=== PATIENT | female | born 1970 | race Caucasian/White ===

== ENCOUNTER 2021-11-20 09:46 | Observation (INO) ==
[2021-11-20] MEDS ORDERED: Ondansetron 4 MG/2 ML VIAL IVP PRN (13:03)
[2021-11-20] MEDS ORDERED: Naloxone 0.4 MG/ML INJ IVP PRN (13:03)
[2021-11-20 14:09] LABS: Adenovirus Not Detected (Not Detect); Bordetella Pertussis Not Detected (Not Detect); Chlamydophila pneumoniae Not Detected (Not Detect); Coronavirus 229E Not Detected (Not Detect); Coronavirus HKU1 Not Detected (Not Detect); Coronavirus NL63 Not Detected (Not Detect); Coronavirus OC43 Not Detected (Not Detect); Human Metapneumovirus Not Detected (Not Detect); Human Rhinovirus/Enterovirus Not Detected (Not Detect); Influenza A Subtype 2009 H1 Not Detected (Not Detect); Influenza B Not Detected (Not Detect); Mycoplasma pneumoniae Not Detected (Not Detect); Parainfluenza Virus 1 Not Detected (Not Detect); Parainfluenza Virus 2 Not Detected (Not Detect); Parainfluenza Virus 3 Not Detected (Not Detect); Parainfluenza Virus 4 Not Detected (Not Detect); Respiratory Syncytial Virus Not Detected (Not Detect); SARS-CoV-2 Not Detected (Not Detect)
[2021-11-20] MEDS ORDERED: 0.9 % Sodium Chloride 250 ML IVC PRN (14:24)
[2021-11-20] MEDS ORDERED: 0.9 % Sodium Chloride 1,000 ML PRIME SCH (14:30)
[2021-11-20 15:23] LABS: Hepatitis B Surface Antibody < 3.10 mIU/mL
[2021-11-20 15:35] LABS: Hepatitis B Surface Antigen Nonreactive (Nonreactive)
[2021-11-20] MEDS ORDERED: Ipratropium/Albuterol Neb 3 ML IH PRN (17:39)
[2021-11-20] MEDS: clonazePAM 1 MG TABLET PO SCH ×2 (18:19→20:55)
[2021-11-20 18:35] LABS: Calcium 8.9 mg/dL (8.6-10.3); Potassium 4.5 mEq/L (3.5-5.1)
[2021-11-20] MEDS: Gabapentin 300 MG CAPSULE PO SCH (21:40)
[2021-11-20] MEDS: hydrALAZINE 25 MG TABLET PO SCH (21:40)
[2021-11-20] MEDS: *HR* Heparin 5,000 UNIT/ML VIAL SQ SCH (21:41)
[2021-11-21] MEDS: clonazePAM 0.5 MG TABLET PO PRN (01:30)
[2021-11-21] MEDS ORDERED: Acetaminophen 325 MG TABLET PO ONE (01:30)
[2021-11-21 01:48] LABS: Basophils # 0.1 K/mcL (0.0-0.2); Basophils % 0.4 %; Eosinophils # 0.2 K/mcL (0.0-0.6); Eosinophils % 1.1 %; Hematocrit 30.7 % (35.3-44.9); Hemoglobin 9.6 g/dL (11.5-15.4); Immature Granulocytes % 0.7 % (0-4); Lymphocytes % 12.4 %; Mean Corpuscular HGB Conc 31.3 g/dL (31.6-35.5); Mean Platelet Volume 12.6 fL (9.4-12.4); Monocytes # 1.3 K/mcL (0.0-1.3); Monocytes % 8.3 %; Neutrophils # 12.5 K/mcL (1.6-8.9); Nucleated Red Blood Cells 0.5 /100 WBC (0); Platelet Count 170 K/mcL (140-400); Red Cell Distribution Width 17.2 % (11.5-14.5); Segmented Neutrophils % 77.1 %; White Blood Count 16.2 K/mcL (4.3-11.1)
[2021-11-21 02:10] LABS: Calcium 9.3 mg/dL (8.6-10.3); Potassium 4.5 mEq/L (3.5-5.1)
[2021-11-21] MEDS: *HR* Heparin 5,000 UNIT/ML VIAL SQ SCH ×3 (05:40→20:12)
[2021-11-21] MEDS ORDERED: Dextrose Gel 15 GM/37.5 ML TUBE PO PRN ×2 (07:33)
[2021-11-21] MEDS ORDERED: *HR* Dextrose 50 % in Water (Syg) 50 ML SYRINGE IVP PRN (07:33)
[2021-11-21] MEDS ORDERED: D5% in Water 1,000 ML IVC PRN (07:33)
[2021-11-21] MEDS: Aspirin Enteric Coated 81 MG Tablet PO SCH (09:17)
[2021-11-21] MEDS: amLODIPine 5 MG TABLET PO SCH (09:17)
[2021-11-21] MEDS: clonazePAM 1 MG TABLET PO SCH ×2 (09:17→20:12)
[2021-11-21] MEDS: Azithromycin 250 MG TABLET PO SCH (09:17)
[2021-11-21] MEDS: lisinopriL 20 MG TABLET PO SCH (09:17)
[2021-11-21] MEDS: Anastrozole 1 MG TABLET PO SCH (09:17)
[2021-11-21] MEDS: cefTRIAXone 1,000 MG in 0.9 % Sodium Chloride Mini Bag 100 ML IVPB SCH (09:17)
[2021-11-21] MEDS: Furosemide 20 MG TABLET PO SCH (09:17)
[2021-11-21] MEDS: hydrALAZINE 25 MG TABLET PO SCH ×2 (09:17→20:12)
[2021-11-21] MEDS: Ipratropium/Albuterol Neb 3 ML IH SCH ×3 (11:10→20:51)
[2021-11-21] MEDS: Insulin LISPRO 300 UNITS/3 ML VIAL SUBQ SCH ×2 (12:16→16:49)
[2021-11-21] MEDS: Gabapentin 300 MG CAPSULE PO SCH (20:12)
[2021-11-21] MEDS ORDERED: Insulin LISPRO 300 UNITS/3 ML VIAL SUBQ SCH (21:00)
[2021-11-22] MEDS: clonazePAM 0.5 MG TABLET PO PRN (00:25)
[2021-11-22] MEDS: Ipratropium/Albuterol Neb 3 ML IH SCH ×2 (04:03→11:42)
[2021-11-22 05:37] LABS: Basophils # 0.1 K/mcL (0.0-0.2); Basophils % 0.6 %; Eosinophils # 0.2 K/mcL (0.0-0.6); Eosinophils % 1.5 %; Hematocrit 29.3 % (35.3-44.9); Hemoglobin 9.1 g/dL (11.5-15.4); Lymphocytes # 1.6 K/mcL (0.6-4.6); Lymphocytes % 11.2 %; Mean Corpuscular HGB Conc 31.1 g/dL (31.6-35.5); Mean Corpuscular Hemoglobin 31.1 pg (28.0-33.3); Mean Platelet Volume 12.7 fL (9.4-12.4); Monocytes # 1.1 K/mcL (0.0-1.3); Nucleated Red Blood Cells 0.2 /100 WBC (0); Platelet Count 171 K/mcL (140-400); Red Blood Count 2.93 M/mcL (3.82-4.97); Red Cell Distribution Width 17.2 % (11.5-14.5); Segmented Neutrophils % 77.7 %; White Blood Count 14.2 K/mcL (4.3-11.1)
[2021-11-22 05:50] LABS: Calcium 8.9 mg/dL (8.6-10.3); Phosphorous 5.1 mg/dL (2.7-4.5); Potassium 5.4 mEq/L (3.5-5.1)
[2021-11-22] MEDS: *HR* Heparin 5,000 UNIT/ML VIAL SQ SCH ×2 (06:11→13:20)
[2021-11-22] MEDS: Azithromycin 250 MG TABLET PO SCH (08:37)
[2021-11-22] MEDS: Aspirin Enteric Coated 81 MG Tablet PO SCH (08:37)
[2021-11-22] MEDS: Furosemide 20 MG TABLET PO SCH (08:37)
[2021-11-22] MEDS: clonazePAM 1 MG TABLET PO SCH (08:37)
[2021-11-22] MEDS: hydrALAZINE 25 MG TABLET PO SCH (08:37)
[2021-11-22] MEDS: Insulin LISPRO 300 UNITS/3 ML VIAL SUBQ SCH ×3 (08:38→17:02)
[2021-11-22] MEDS: lisinopriL 20 MG TABLET PO SCH (08:38)
[2021-11-22] MEDS: amLODIPine 5 MG TABLET PO SCH (08:38)
[2021-11-22] MEDS: Anastrozole 1 MG TABLET PO SCH (08:38)
[2021-11-22] MEDS: cefTRIAXone 1,000 MG in 0.9 % Sodium Chloride Mini Bag 100 ML IVPB SCH (08:38)
[2021-11-22] MEDS ORDERED: 0.9 % Sodium Chloride 250 ML IVC PRN (09:33)
[2021-11-22] MEDS ORDERED: *HR* Heparin 10,000 UNIT/10 ML VIAL IV PRN (09:33)
[2021-11-22 11:08] VITALS: O2SAT 92
[2021-11-22] MEDS ORDERED: Ipratropium/Albuterol Neb 3 ML IH PRN (14:08)
[2021-11-22 16:21] VITALS: PULSE 81
[2021-11-22 21:11] VITALS: BP 167/90; TEMP 98.1
== END 2021-11-22 20:45 | disposition home or self-care (01) ==
LOC: 2ANU → SUATTDRO 12:36
PROVIDERS: ADMIT Internal Medicine; ATTEND Family Medicine

== ENCOUNTER 2022-07-30 01:35 | Inpatient (IN) ==
[2022-07-30] MEDS ORDERED: Naloxone 0.4 MG/ML INJ IVP PRN (04:41)
[2022-07-30] MEDS ORDERED: *HR* Dextrose 50 % in Water (Syg) 50 ML SYRINGE IVP PRN (04:48)
[2022-07-30] MEDS ORDERED: D5% in Water 1,000 ML IVC PRN (04:48)
[2022-07-30] MEDS ORDERED: Dextrose Gel 15 GM/37.5 ML TUBE PO PRN ×2 (04:48)
[2022-07-30] MEDS ORDERED: Morphine Sulfate 2 MG/ML SYRINGE IVP ONE (04:54)
[2022-07-30] MEDS: Insulin LISPRO 300 UNITS/3 ML VIAL SUBQ SCH ×3 (05:14→18:11)
[2022-07-30] MEDS ORDERED: clonazePAM 0.5 MG TABLET PO PRN (05:40)
[2022-07-30 06:42] LABS: Basophils # 0.1 K/mcL (0.0-0.2); Basophils % 0.5 %; Eosinophils % 0.2 %; Hematocrit 31.8 % (35.3-44.9); Hemoglobin 9.7 g/dL (11.5-15.4); Immature Granulocytes % 0.7 % (0-4); Lymphocytes # 1.1 K/mcL (0.6-4.6); Lymphocytes % 6.1 %; Mean Corpuscular HGB Conc 30.5 g/dL (31.6-35.5); Mean Corpuscular Hemoglobin 31.7 pg (28.0-33.3); Mean Corpuscular Volume 103.9 fL (83.0-100.0); Mean Platelet Volume 12.4 fL (9.4-12.4); Monocytes # 1.3 K/mcL (0.0-1.3); Monocytes % 7.1 %; Neutrophils # 15.5 K/mcL (1.6-8.9); Nucleated Red Blood Cells 0.6 /100 WBC (0); Platelet Count 185 K/mcL (140-400); Red Blood Count 3.06 M/mcL (3.82-4.97); Red Cell Distribution Width 19.1 % (11.5-14.5); Segmented Neutrophils % 85.4 %; White Blood Count 18.2 K/mcL (4.3-11.1)
[2022-07-30 06:49] LABS: INR 1.3; Prothrombin Time 14.8 Seconds (9.4-12.1)
[2022-07-30 06:52] LABS: Activated Partial Thrombo Time 33.3 Seconds (26.0-36.0)
[2022-07-30 07:13] LABS: Alanine Aminotransferase 9 Units/L (7-52); Albumin 4.2 g/dL (3.5-5.7); Albumin/Globulin Ratio 1.3 (1.1-2.2); Alkaline Phosphatase 69 Units/L (34-104); Aspartate Amino Transferase 14 Units/L (13-39); BUN/Creatinine Ratio 6 (6-26); Bilirubin,Total 0.4 mg/dL (0.3-1.0); Blood Urea Nitrogen 54 mg/dL (6-20); Calcium 10.2 mg/dL (8.6-10.3); Carbon Dioxide 25 mEq/L (23-29); Chloride 100 mEq/L (98-107); Globulin 3.2 g/dL (2.4-3.5); Glucose 124 mg/dL (70-105); Magnesium 2.2 mg/dL (1.6-2.6); Osmolality,Calculated 304 (280-300); Phosphorous 3.9 mg/dL (2.7-4.5); Potassium 4.6 mEq/L (3.5-5.1); Sodium 139 mEq/L (136-145); Total Protein 7.4 g/dL (6.4-8.9); Troponin I 0.15 ng/mL (< 0.04)
[2022-07-30 07:53] LABS: Adenovirus Not Detected (Not Detect); Bordetella Pertussis Not Detected (Not Detect); Chlamydophila pneumoniae Not Detected (Not Detect); Coronavirus 229E Not Detected (Not Detect); Coronavirus HKU1 Not Detected (Not Detect); Coronavirus NL63 Not Detected (Not Detect); Coronavirus OC43 Not Detected (Not Detect); Human Metapneumovirus Not Detected (Not Detect); Human Rhinovirus/Enterovirus Not Detected (Not Detect); Influenza A Subtype 2009 H1 Not Detected (Not Detect); Influenza B Not Detected (Not Detect); Mycoplasma pneumoniae Not Detected (Not Detect); Parainfluenza Virus 1 Not Detected (Not Detect); Parainfluenza Virus 2 Not Detected (Not Detect); Parainfluenza Virus 3 Not Detected (Not Detect); Parainfluenza Virus 4 Not Detected (Not Detect); Respiratory Syncytial Virus Not Detected (Not Detect); SARS-CoV-2 Not Detected (Not Detect)
[2022-07-30] MEDS ORDERED: 0.9 % Sodium Chloride 250 ML IVC PRN (08:18)
[2022-07-30] MEDS ORDERED: Ethyl Chloride Spray Bottle (104 SPRAY/BOTTLE) TP PRN (08:18)
[2022-07-30] MEDS ORDERED: 0.9 % Sodium Chloride 2,000 ML PRIME SCH (08:30)
[2022-07-30] MEDS: Aspirin Enteric Coated 81 MG Tablet PO SCH (08:41)
[2022-07-30] MEDS: hydrALAZINE 25 MG TABLET PO SCH ×2 (08:41→20:21)
[2022-07-30] MEDS: Furosemide 20 MG TABLET PO SCH (08:42)
[2022-07-30] MEDS: amLODIPine 5 MG TABLET PO SCH (08:42)
[2022-07-30 08:45] LABS: Hepatitis B Surface Antibody < 3.10 mIU/mL
[2022-07-30 08:57] LABS: Hepatitis B Surface Antigen Nonreactive (Nonreactive)
[2022-07-30] MEDS: Acetaminophen 325 MG TABLET PO PRN ×2 (09:00→17:09)
[2022-07-30 09:19] LABS: % Iron Saturation 6 % (15-50); Iron 19 mcg/dL (50-170); Transferrin 241 mg/dL (203-362)
[2022-07-30] MEDS ORDERED: Doxycycline 100 MG in 0.9 % Sodium Chloride Mini Bag 100 ML IVPB SCH ×2 (10:26→14:00)
[2022-07-30] MEDS: Ondansetron 4 MG/2 ML VIAL IVP PRN (10:30)
[2022-07-30] MEDS ORDERED: Piperacillin/Tazobactam 3.375 GM in 0.9 % Sodium Chloride Mini Bag 100 ML IVPB SCH (12:00)
[2022-07-30 13:08] LABS: Ferritin > 1500 ng/mL (10-120)
[2022-07-30] MEDS: Piperacillin/Tazobactam 3.375 GM in 0.9 % Sodium Chloride Mini Bag 100 ML IVPB SCH (16:15)
[2022-07-30] MEDS: Doxycycline 100 MG in 0.9 % Sodium Chloride Mini Bag 100 ML IVPB SCH (16:16)
[2022-07-30] MEDS: *HR* Heparin 5,000 UNIT/ML VIAL SQ SCH (17:09)
[2022-07-30] MEDS: Gabapentin 300 MG CAPSULE PO SCH (20:20)
[2022-07-30] MEDS: clonazePAM 1 MG TABLET PO SCH (20:21)
[2022-07-31] MEDS: Insulin LISPRO 300 UNITS/3 ML VIAL SUBQ SCH ×4 (00:08→18:48)
[2022-07-31] MEDS: Doxycycline 100 MG in 0.9 % Sodium Chloride Mini Bag 100 ML IVPB SCH ×2 (03:27→18:40)
[2022-07-31 03:54] LABS: Basophils # 0.1 K/mcL (0.0-0.2); Basophils % 0.6 %; Eosinophils # 0.3 K/mcL (0.0-0.6); Eosinophils % 2.5 %; Hematocrit 26.7 % (35.3-44.9); Hemoglobin 8.3 g/dL (11.5-15.4); Immature Granulocytes % 0.5 % (0-4); Lymphocytes # 1.8 K/mcL (0.6-4.6); Lymphocytes % 16.2 %; Mean Corpuscular HGB Conc 31.1 g/dL (31.6-35.5); Mean Corpuscular Hemoglobin 31.9 pg (28.0-33.3); Mean Corpuscular Volume 102.7 fL (83.0-100.0); Mean Platelet Volume 11.3 fL (9.4-12.4); Monocytes % 8.9 %; Neutrophils # 7.9 K/mcL (1.6-8.9); Nucleated Red Blood Cells 0.4 /100 WBC (0); Platelet Count 156 K/mcL (140-400); Red Cell Distribution Width 19.2 % (11.5-14.5); Segmented Neutrophils % 71.3 %
[2022-07-31 04:18] LABS: Calcium 9.4 mg/dL (8.6-10.3); Phosphorous 3.9 mg/dL (2.7-4.5); Potassium 4.2 mEq/L (3.5-5.1)
[2022-07-31] MEDS: Piperacillin/Tazobactam 3.375 GM in 0.9 % Sodium Chloride Mini Bag 100 ML IVPB SCH ×3 (04:53→19:48)
[2022-07-31] MEDS: *HR* Heparin 5,000 UNIT/ML VIAL SQ SCH ×2 (05:36→18:40)
[2022-07-31] MEDS: Furosemide 20 MG TABLET PO SCH (07:48)
[2022-07-31] MEDS: hydrALAZINE 25 MG TABLET PO SCH ×2 (07:48→19:46)
[2022-07-31] MEDS: amLODIPine 5 MG TABLET PO SCH (07:48)
[2022-07-31] MEDS: clonazePAM 1 MG TABLET PO SCH ×2 (07:48→19:46)
[2022-07-31] MEDS: Aspirin Enteric Coated 81 MG Tablet PO SCH (07:48)
[2022-07-31 09:52] LABS: Adenovirus Not Detected (Not Detect); Bordetella Pertussis Not Detected (Not Detect); Chlamydophila pneumoniae Not Detected (Not Detect); Coronavirus 229E Not Detected (Not Detect); Coronavirus HKU1 Not Detected (Not Detect); Coronavirus NL63 Not Detected (Not Detect); Coronavirus OC43 Not Detected (Not Detect); Human Metapneumovirus Not Detected (Not Detect); Human Rhinovirus/Enterovirus Not Detected (Not Detect); Influenza A Subtype 2009 H1 Not Detected (Not Detect); Influenza B Not Detected (Not Detect); Mycoplasma pneumoniae Not Detected (Not Detect); Parainfluenza Virus 1 Not Detected (Not Detect); Parainfluenza Virus 2 Not Detected (Not Detect); Parainfluenza Virus 3 Not Detected (Not Detect); Parainfluenza Virus 4 Not Detected (Not Detect); Respiratory Syncytial Virus Not Detected (Not Detect); SARS-CoV-2 Not Detected (Not Detect)
[2022-07-31] MEDS ORDERED: 0.9 % Sodium Chloride 250 ML IVC PRN (12:02)
[2022-07-31] MEDS ORDERED: Iopamidol - 370 500 ML MLS IVP ONE (15:07)
[2022-07-31] MEDS: Gabapentin 300 MG CAPSULE PO SCH (19:46)
[2022-08-01] MEDS: *HR* Heparin 5,000 UNIT/ML VIAL SQ SCH ×2 (05:52→18:04)
[2022-08-01] MEDS: Doxycycline 100 MG in 0.9 % Sodium Chloride Mini Bag 100 ML IVPB SCH ×2 (05:53→18:04)
[2022-08-01] MEDS: Insulin LISPRO 300 UNITS/3 ML VIAL SUBQ SCH ×4 (06:07→18:05)
[2022-08-01 06:34] LABS: Basophils # 0.1 K/mcL (0.0-0.2); Basophils % 0.7 %; Eosinophils # 0.4 K/mcL (0.0-0.6); Eosinophils % 3.3 %; Hematocrit 30.8 % (35.3-44.9); Hemoglobin 9.8 g/dL (11.5-15.4); Immature Granulocytes % 0.6 % (0-4); Lymphocytes # 1.8 K/mcL (0.6-4.6); Lymphocytes % 15.7 %; Mean Corpuscular HGB Conc 31.8 g/dL (31.6-35.5); Mean Corpuscular Hemoglobin 32.3 pg (28.0-33.3); Mean Corpuscular Volume 101.7 fL (83.0-100.0); Mean Platelet Volume 11.8 fL (9.4-12.4); Monocytes # 1.1 K/mcL (0.0-1.3); Monocytes % 9.7 %; Neutrophils # 8.2 K/mcL (1.6-8.9); Nucleated Red Blood Cells 0.5 /100 WBC (0); Platelet Count 187 K/mcL (140-400); Red Blood Count 3.03 M/mcL (3.82-4.97); Red Cell Distribution Width 18.8 % (11.5-14.5); White Blood Count 11.7 K/mcL (4.3-11.1)
[2022-08-01 06:53] LABS: Calcium 9.9 mg/dL (8.6-10.3); Magnesium 2.1 mg/dL (1.6-2.6); Potassium 4.9 mEq/L (3.5-5.1)
[2022-08-01] MEDS ORDERED: 0.9 % Sodium Chloride 250 ML IVC PRN (08:13)
[2022-08-01] MEDS: amLODIPine 5 MG TABLET PO SCH (08:18)
[2022-08-01] MEDS: Furosemide 20 MG TABLET PO SCH (08:18)
[2022-08-01] MEDS: Acetaminophen 325 MG TABLET PO PRN ×2 (08:18→18:03)
[2022-08-01] MEDS: hydrALAZINE 25 MG TABLET PO SCH ×2 (08:19→20:14)
[2022-08-01] MEDS: clonazePAM 1 MG TABLET PO SCH ×2 (08:19→18:05)
[2022-08-01] MEDS: Piperacillin/Tazobactam 3.375 GM in 0.9 % Sodium Chloride Mini Bag 100 ML IVPB SCH ×2 (08:19→13:52)
[2022-08-01] MEDS: Aspirin Enteric Coated 81 MG Tablet PO SCH (08:19)
[2022-08-01] MEDS: Gabapentin 300 MG CAPSULE PO SCH (20:14)
[2022-08-01] MEDS: clonazePAM 0.5 MG TABLET PO PRN (20:18)
[2022-08-02] MEDS: Insulin LISPRO 300 UNITS/3 ML VIAL SUBQ SCH ×4 (00:02→16:34)
[2022-08-02] MEDS: Piperacillin/Tazobactam 3.375 GM in 0.9 % Sodium Chloride Mini Bag 100 ML IVPB SCH ×2 (03:28→16:33)
[2022-08-02] MEDS: Doxycycline 100 MG in 0.9 % Sodium Chloride Mini Bag 100 ML IVPB SCH ×2 (05:16→16:33)
[2022-08-02] MEDS: *HR* Heparin 5,000 UNIT/ML VIAL SQ SCH ×2 (05:16→16:34)
[2022-08-02 07:22] LABS: Hematocrit 29.6 % (35.3-44.9); Hemoglobin 9.5 g/dL (11.5-15.4); Mean Corpuscular HGB Conc 32.1 g/dL (31.6-35.5); Mean Corpuscular Hemoglobin 32.1 pg (28.0-33.3); Mean Platelet Volume 11.1 fL (9.4-12.4); Platelet Count 201 K/mcL (140-400); Red Blood Count 2.96 M/mcL (3.82-4.97); Red Cell Distribution Width 18.8 % (11.5-14.5); White Blood Count 10.5 K/mcL (4.3-11.1)
[2022-08-02 07:41] LABS: Calcium 9.6 mg/dL (8.6-10.3); Potassium 4.3 mEq/L (3.5-5.1)
[2022-08-02] MEDS: Furosemide 20 MG TABLET PO SCH (08:35)
[2022-08-02] MEDS: hydrALAZINE 25 MG TABLET PO SCH ×2 (08:35→20:22)
[2022-08-02] MEDS: Aspirin Enteric Coated 81 MG Tablet PO SCH (08:36)
[2022-08-02] MEDS: clonazePAM 1 MG TABLET PO SCH ×2 (08:36→20:22)
[2022-08-02] MEDS: amLODIPine 5 MG TABLET PO SCH (08:36)
[2022-08-02] MEDS: Metoprolol XL (24 HR) Succ 25 MG TAB.ER.24H PO SCH (08:36)
[2022-08-02] MEDS ORDERED: Iopamidol - 370 500 ML MLS IVP ONE (09:48)
[2022-08-02 10:44] LABS: Estimated Average Glucose 97 mg/dl
[2022-08-02] MEDS: clonazePAM 0.5 MG TABLET PO PRN (18:45)
[2022-08-02] MEDS: Gabapentin 300 MG CAPSULE PO SCH (20:22)
[2022-08-03] MEDS: Insulin LISPRO 300 UNITS/3 ML VIAL SUBQ SCH ×3 (00:18→11:49)
[2022-08-03] MEDS: Doxycycline 100 MG in 0.9 % Sodium Chloride Mini Bag 100 ML IVPB SCH ×2 (03:20→17:09)
[2022-08-03] MEDS: Piperacillin/Tazobactam 3.375 GM in 0.9 % Sodium Chloride Mini Bag 100 ML IVPB SCH ×2 (04:09→17:08)
[2022-08-03] MEDS: *HR* Heparin 5,000 UNIT/ML VIAL SQ SCH ×2 (04:10→17:10)
[2022-08-03 04:49] LABS: Hematocrit 29.3 % (35.3-44.9); Hemoglobin 9.3 g/dL (11.5-15.4); Mean Corpuscular HGB Conc 31.7 g/dL (31.6-35.5); Mean Corpuscular Hemoglobin 31.8 pg (28.0-33.3); Mean Corpuscular Volume 100.3 fL (83.0-100.0); Mean Platelet Volume 11.3 fL (9.4-12.4); Platelet Count 187 K/mcL (140-400); Red Blood Count 2.92 M/mcL (3.82-4.97); White Blood Count 12.2 K/mcL (4.3-11.1)
[2022-08-03 05:12] LABS: Calcium 9.5 mg/dL (8.6-10.3); Potassium 4.5 mEq/L (3.5-5.1)
[2022-08-03] MEDS ORDERED: 0.9 % Sodium Chloride 250 ML IVC PRN (08:16)
[2022-08-03] MEDS: Aspirin Enteric Coated 81 MG Tablet PO SCH (08:40)
[2022-08-03] MEDS: Metoprolol XL (24 HR) Succ 25 MG TAB.ER.24H PO SCH ×2 (08:41→13:06)
[2022-08-03] MEDS: Furosemide 20 MG TABLET PO SCH ×2 (08:41→13:06)
[2022-08-03] MEDS: amLODIPine 5 MG TABLET PO SCH ×2 (08:41→13:06)
[2022-08-03] MEDS: clonazePAM 1 MG TABLET PO SCH ×2 (08:41→19:42)
[2022-08-03] MEDS: hydrALAZINE 25 MG TABLET PO SCH ×2 (08:41→19:42)
[2022-08-03] MEDS: clonazePAM 0.5 MG TABLET PO PRN (13:06)
[2022-08-03] MEDS: Gabapentin 300 MG CAPSULE PO SCH (19:42)
[2022-08-04] MEDS: Insulin LISPRO 300 UNITS/3 ML VIAL SUBQ SCH ×6 (00:38→23:18)
[2022-08-04] MEDS: Doxycycline 100 MG in 0.9 % Sodium Chloride Mini Bag 100 ML IVPB SCH ×2 (03:21→20:22)
[2022-08-04] MEDS: Piperacillin/Tazobactam 3.375 GM in 0.9 % Sodium Chloride Mini Bag 100 ML IVPB SCH ×2 (04:19→15:35)
[2022-08-04] MEDS: *HR* Heparin 5,000 UNIT/ML VIAL SQ SCH ×2 (04:20→18:03)
[2022-08-04] MEDS: amLODIPine 5 MG TABLET PO SCH (08:58)
[2022-08-04] MEDS: Metoprolol XL (24 HR) Succ 25 MG TAB.ER.24H PO SCH (08:58)
[2022-08-04] MEDS: Furosemide 20 MG TABLET PO SCH (08:59)
[2022-08-04] MEDS: hydrALAZINE 25 MG TABLET PO SCH ×2 (08:59→20:23)
[2022-08-04] MEDS: Aspirin Enteric Coated 81 MG Tablet PO SCH (08:59)
[2022-08-04] MEDS: clonazePAM 1 MG TABLET PO SCH ×2 (08:59→20:23)
[2022-08-04 11:12] LABS: Hematocrit 32.2 % (35.3-44.9); Hemoglobin 10.1 g/dL (11.5-15.4); Mean Corpuscular HGB Conc 31.4 g/dL (31.6-35.5); Mean Corpuscular Hemoglobin 31.6 pg (28.0-33.3); Mean Corpuscular Volume 100.6 fL (83.0-100.0); Mean Platelet Volume 10.8 fL (9.4-12.4); Platelet Count 186 K/mcL (140-400); Red Cell Distribution Width 19.7 % (11.5-14.5); White Blood Count 10.9 K/mcL (4.3-11.1)
[2022-08-04 11:31] LABS: Calcium 9.3 mg/dL (8.6-10.3)
[2022-08-04 11:57] LABS: Folate 15.2 ng/mL (3.0-16.0)
[2022-08-04] MEDS: Gabapentin 300 MG CAPSULE PO SCH (20:23)
[2022-08-04] MEDS: Lactobacillus 1 EACH CAP.SPRINK PO SCH (21:58)
[2022-08-04] MEDS ORDERED: Saliva Stimulant 44.3ml BOTTLE PO PRN (22:20)
[2022-08-04 22:29] LABS: Adenovirus F 40/41 PCR Not detected (Not detect); Astrovirus PCR Not detected (Not detect); C.difficile Toxin A/B Gene PCR Not detected (Not detect); Campylobacter by PCR Not detected (Not detect); Cryptosporidium by PCR Not detected (Not detect); Cyclospora cayetanensis PCR Not detected (Not detect); Entamoeba histolytica PCR Not detected (Not detect); Enteroaggregative E.coli(EAEC) Not detected (Not detect); Enteropathogenic E.coli(EPEC) Not detected (Not detect); Enterotoxigenic E.coli (ETEC) Not detected (Not detect); Giardia lamblia PCR Not detected (Not detect); Norovirus GI/GII PCR Not detected (Not detect); Plesiomonas shigelloides PCR Not detected (Not detect); Rotavirus A PCR Not detected (Not detect); Salmonella PCR Not detected (Not detect); Sapovirus PCR Not detected (Not detect); Shig/EnteroinvasiveE coli EIEC Not detected (Not detect); Shigalike tox-prod E coli STEC Not detected (Not detect); Vibrio PCR Not detected (Not detect); Vibrio cholerae PCR Not detected (Not detect); Yersinia enterocolitica PCR Not detected (Not detect)
[2022-08-04] MEDS: Ondansetron 4 MG/2 ML VIAL IVP PRN (22:41)
[2022-08-05] MEDS: Piperacillin/Tazobactam 3.375 GM in 0.9 % Sodium Chloride Mini Bag 100 ML IVPB SCH ×2 (02:32→14:58)
[2022-08-05 03:56] LABS: Calcium 9.2 mg/dL (8.6-10.3)
[2022-08-05] MEDS: *HR* Heparin 5,000 UNIT/ML VIAL SQ SCH ×2 (06:12→18:16)
[2022-08-05] MEDS: Insulin LISPRO 300 UNITS/3 ML VIAL SUBQ SCH ×3 (06:13→18:17)
[2022-08-05] MEDS: Doxycycline 100 MG in 0.9 % Sodium Chloride Mini Bag 100 ML IVPB SCH ×2 (08:55→20:42)
[2022-08-05] MEDS: Furosemide 20 MG TABLET PO SCH (08:57)
[2022-08-05] MEDS: amLODIPine 5 MG TABLET PO SCH (08:57)
[2022-08-05] MEDS: hydrALAZINE 25 MG TABLET PO SCH ×2 (08:57→20:42)
[2022-08-05] MEDS: Metoprolol XL (24 HR) Succ 25 MG TAB.ER.24H PO SCH (08:57)
[2022-08-05] MEDS: Aspirin Enteric Coated 81 MG Tablet PO SCH (08:57)
[2022-08-05] MEDS: clonazePAM 1 MG TABLET PO SCH ×2 (08:57→20:41)
[2022-08-05] MEDS: Lactobacillus 1 EACH CAP.SPRINK PO SCH (08:57)
[2022-08-05] MEDS: clonazePAM 0.5 MG TABLET PO PRN (13:46)
[2022-08-05] MEDS: Gabapentin 300 MG CAPSULE PO SCH (20:42)
[2022-08-05] MEDS: Ondansetron 4 MG/2 ML VIAL IVP PRN (20:46)
[2022-08-05] MEDS: Fluticasone Propionate Nasal 50 MCG/SPRAY BOTTLE NS SCH (23:30)
[2022-08-06] MEDS: Insulin LISPRO 300 UNITS/3 ML VIAL SUBQ SCH ×4 (02:18→17:35)
[2022-08-06] MEDS: Piperacillin/Tazobactam 3.375 GM in 0.9 % Sodium Chloride Mini Bag 100 ML IVPB SCH ×2 (03:41→14:55)
[2022-08-06] MEDS: *HR* Heparin 5,000 UNIT/ML VIAL SQ SCH ×2 (05:43→17:35)
[2022-08-06] MEDS ORDERED: 0.9 % Sodium Chloride 250 ML IVC PRN (08:17)
[2022-08-06] MEDS: Doxycycline 100 MG in 0.9 % Sodium Chloride Mini Bag 100 ML IVPB SCH ×2 (09:49→20:30)
[2022-08-06] MEDS: Aspirin Enteric Coated 81 MG Tablet PO SCH (09:49)
[2022-08-06] MEDS: hydrALAZINE 25 MG TABLET PO SCH ×2 (09:50→20:31)
[2022-08-06] MEDS: clonazePAM 1 MG TABLET PO SCH ×2 (09:50→20:31)
[2022-08-06] MEDS: Furosemide 20 MG TABLET PO SCH (09:50)
[2022-08-06] MEDS: Fluticasone Propionate Nasal 50 MCG/SPRAY BOTTLE NS SCH (09:50)
[2022-08-06] MEDS: Lactobacillus 1 EACH CAP.SPRINK PO SCH (09:50)
[2022-08-06] MEDS: amLODIPine 5 MG TABLET PO SCH (09:51)
[2022-08-06] MEDS: Metoprolol XL (24 HR) Succ 25 MG TAB.ER.24H PO SCH (09:51)
[2022-08-06] MEDS: clonazePAM 0.5 MG TABLET PO PRN (15:51)
[2022-08-06 17:32] LABS: Potassium 4.1 mEq/L (3.5-5.1)
[2022-08-06] MEDS: Gabapentin 300 MG CAPSULE PO SCH (20:31)
[2022-08-07] MEDS: Insulin LISPRO 300 UNITS/3 ML VIAL SUBQ SCH ×4 (00:35→17:04)
[2022-08-07] MEDS: Piperacillin/Tazobactam 3.375 GM in 0.9 % Sodium Chloride Mini Bag 100 ML IVPB SCH ×2 (02:37→15:40)
[2022-08-07] MEDS: clonazePAM 0.5 MG TABLET PO PRN ×2 (02:37→11:36)
[2022-08-07] MEDS: *HR* Heparin 5,000 UNIT/ML VIAL SQ SCH ×2 (05:45→17:05)
[2022-08-07] MEDS: amLODIPine 5 MG TABLET PO SCH (08:48)
[2022-08-07] MEDS: Furosemide 20 MG TABLET PO SCH (08:48)
[2022-08-07] MEDS: clonazePAM 1 MG TABLET PO SCH ×2 (08:48→20:19)
[2022-08-07] MEDS: hydrALAZINE 25 MG TABLET PO SCH ×2 (08:48→20:19)
[2022-08-07] MEDS: Aspirin Enteric Coated 81 MG Tablet PO SCH (08:48)
[2022-08-07] MEDS: Metoprolol XL (24 HR) Succ 25 MG TAB.ER.24H PO SCH (08:48)
[2022-08-07] MEDS: Lactobacillus 1 EACH CAP.SPRINK PO SCH (08:49)
[2022-08-07] MEDS: Doxycycline 100 MG in 0.9 % Sodium Chloride Mini Bag 100 ML IVPB SCH ×2 (08:49→20:19)
[2022-08-07] MEDS: Fluticasone Propionate Nasal 50 MCG/SPRAY BOTTLE NS SCH (08:54)
[2022-08-07 09:58] LABS: Basophils # 0.1 K/mcL (0.0-0.2); Basophils % 0.7 %; Eosinophils # 0.4 K/mcL (0.0-0.6); Eosinophils % 3.3 %; Hematocrit 30.3 % (35.3-44.9); Hemoglobin 9.5 g/dL (11.5-15.4); Immature Granulocytes % 1.6 % (0-4); Lymphocytes # 2.2 K/mcL (0.6-4.6); Mean Corpuscular HGB Conc 31.4 g/dL (31.6-35.5); Mean Corpuscular Hemoglobin 31.9 pg (28.0-33.3); Mean Corpuscular Volume 101.7 fL (83.0-100.0); Mean Platelet Volume 11.6 fL (9.4-12.4); Monocytes # 1.2 K/mcL (0.0-1.3); Monocytes % 11.1 %; Neutrophils # 6.5 K/mcL (1.6-8.9); Nucleated Red Blood Cells 0.2 /100 WBC (0); Platelet Count 141 K/mcL (140-400); Red Blood Count 2.98 M/mcL (3.82-4.97); Red Cell Distribution Width 19.1 % (11.5-14.5); Segmented Neutrophils % 62.3 %; White Blood Count 10.5 K/mcL (4.3-11.1)
[2022-08-07 10:16] LABS: Albumin 3.7 g/dL (3.5-5.7); Calcium 8.9 mg/dL (8.6-10.3); Magnesium 1.9 mg/dL (1.6-2.6); Phosphorous 6.7 mg/dL (2.7-4.5); Potassium 4.6 mEq/L (3.5-5.1)
[2022-08-07 10:20] LABS: Calcium 8.8 mg/dL (8.6-10.3); Potassium 4.7 mEq/L (3.5-5.1)
[2022-08-07] MEDS: Ondansetron 4 MG/2 ML VIAL IVP PRN ×2 (11:36→19:46)
[2022-08-07] MEDS: Gabapentin 300 MG CAPSULE PO SCH (20:19)
[2022-08-07] MEDS ORDERED: Insulin LISPRO 300 UNITS/3 ML VIAL SUBQ SCH (21:00)
[2022-08-08] MEDS: Piperacillin/Tazobactam 3.375 GM in 0.9 % Sodium Chloride Mini Bag 100 ML IVPB SCH (02:23)
[2022-08-08 05:01] LABS: Basophils # 0.1 K/mcL (0.0-0.2); Basophils % 0.8 %; Eosinophils # 0.4 K/mcL (0.0-0.6); Hematocrit 30.5 % (35.3-44.9); Hemoglobin 9.6 g/dL (11.5-15.4); Immature Granulocytes % 1.6 % (0-4); Lymphocytes # 2.2 K/mcL (0.6-4.6); Mean Corpuscular HGB Conc 31.5 g/dL (31.6-35.5); Mean Corpuscular Hemoglobin 31.8 pg (28.0-33.3); Mean Platelet Volume 12.2 fL (9.4-12.4); Monocytes # 1.5 K/mcL (0.0-1.3); Neutrophils # 7.9 K/mcL (1.6-8.9); Platelet Count 140 K/mcL (140-400); Red Blood Count 3.02 M/mcL (3.82-4.97); Red Cell Distribution Width 18.6 % (11.5-14.5); Segmented Neutrophils % 64.6 %; White Blood Count 12.2 K/mcL (4.3-11.1)
[2022-08-08 05:29] LABS: Albumin 3.7 g/dL (3.5-5.7); Calcium 8.8 mg/dL (8.6-10.3); Magnesium 1.9 mg/dL (1.6-2.6); Phosphorous 7.5 mg/dL (2.7-4.5); Potassium 5.9 mEq/L (3.5-5.1)
[2022-08-08] MEDS: *HR* Heparin 5,000 UNIT/ML VIAL SQ SCH (05:52)
[2022-08-08] MEDS ORDERED: 0.9 % Sodium Chloride 250 ML IVC PRN (07:44)
[2022-08-08] MEDS: Lactobacillus 1 EACH CAP.SPRINK PO SCH (07:52)
[2022-08-08] MEDS: amLODIPine 5 MG TABLET PO SCH (07:52)
[2022-08-08] MEDS: Metoprolol XL (24 HR) Succ 25 MG TAB.ER.24H PO SCH (07:52)
[2022-08-08] MEDS: Aspirin Enteric Coated 81 MG Tablet PO SCH (07:53)
[2022-08-08] MEDS: clonazePAM 1 MG TABLET PO SCH (07:53)
[2022-08-08] MEDS: hydrALAZINE 25 MG TABLET PO SCH (07:53)
[2022-08-08] MEDS: Furosemide 20 MG TABLET PO SCH (07:54)
[2022-08-08] MEDS: Doxycycline 100 MG in 0.9 % Sodium Chloride Mini Bag 100 ML IVPB SCH (07:58)
[2022-08-08 07:59] VITALS: PULSE 71; O2SAT 91
[2022-08-08] MEDS: Insulin LISPRO 300 UNITS/3 ML VIAL SUBQ SCH (08:38)
[2022-08-08] MEDS: Fluticasone Propionate Nasal 50 MCG/SPRAY BOTTLE NS SCH (08:38)
[2022-08-08 14:45] VITALS: BP 136/81; TEMP 98
== END 2022-08-08 15:25 | disposition left against medical advice (07) | DRG 280 ==
LOC: 3NENU → SUATTDRO 03:50
PROVIDERS: ADMIT Internal Medicine; ATTEND Internal Medicine